=== PATIENT | female | born 1970 | race Caucasian/White ===

== ENCOUNTER → 2016-10-19 | Day surgery (SDC) | payer OTHER ==
[~2016-10-19] VITALS: Ht 172.7 cm; Wt 59.0 kg
[~2016-10-19] MED LIST: CABERGOLINE0.5 M2 PO
--- NOTE | 2016-10-19 09:53 | Operative Report ---
Operative/Inv Procedure Report Surgery Date: 10/19/16 Name of Procedure: Novasure endometrial ablation Hysteroscopy D+C Pre-Operative Diagnosis: menorrhagia Post-Operative Diagnosis: same Estimated Blood Loss: scant Surgeon/Vehicle Care Specialist: ALEXANDREA ERICKSON,ELLEN Vazquez Anesthesia: local monitored anesthesi Specimens: [facility] Complications: none Operative/Procedure Note Note: The patient was brought to the operating room placed in dorsal supine position. After time out the patient's legs were placed in candycane stirrups and she was positioned while awake. After the induction of general anesthesia patient was examined the uterus was noted to be midline and 9 cm. Patient was then prepped and draped in the usual sterile fashion the anterior lip the cervix was grasped with a single-toothed tenaculum the endocervical canal was dilated to a #8 mm the hysteroscope was passed into the endocervical canal and endometrial cavity it was noted to be normal. Sharp curettage was performed in all 4 quadrants and the specimen was sent to pathology for examination the uterus was sounded to 7.5 cm the endocervical canal was noted to be 3.5 cm in length and NovaSure endometrial ablation device was sent to 4 cm device was introduced into the endometrial cavity the array opened and following normal seating procedures the width was noted to be 4 cm after passing the CO2 test the therapy session was performed lasting 1.2 minutes removal of device followed as well as removal of the single-tooth tenaculum hemostasis was excellent patient was awakened and moved to recovery room in good condition
== END ==
LOC: STS 01:05
DX: N92.0 Excessive and frequent menstruation with regular cycle (principal); N93.8 Other specified abnormal uterine and vaginal bleeding; Z80.49 Family history of malignant neoplasm of other genital organs
CPT/HCPCS: 88305; J1100; J1170; J2250; J2405